=== PATIENT | female | born 1995 | race African-American/Black ===

== ENCOUNTER 2016-12-11 01:44 | Inpatient (IN) ==
[2016-12-11 02:12] LABS: URINE SOURCE VOIDED
[2016-12-11 02:24] LABS: BILIRUBIN URINE NEGATIVE (NEGATIVE); BLOOD URINE 3+ (NEGATIVE); CLARITY CLEAR (CLEAR); COLOR YELLOW; GLUCOSE URINE NEGATIVE (NEGATIVE); LEUKOCYTES URINE 1+ (NEGATIVE); NITRITE URINE NEGATIVE (NEGATIVE); PROTEIN URINE NEGATIVE (NEGATIVE); UROBILINOGEN URINE NORMAL
[2016-12-11] MEDS: LR 1,000 ML IV SCH ×2 (02:40→07:20)
[2016-12-11] MEDS: STADOL IV PRN ×2 (02:45→05:17)
[2016-12-11] MEDS ORDERED: PEPCID IV PRN (02:50)
[2016-12-11] MEDS ORDERED: TYLENOL PO PRN (02:50)
[2016-12-11] MEDS ORDERED: REGLAN PO ONE (02:50)
[2016-12-11] MEDS ORDERED: ZOFRAN IV PRN (02:50)
[2016-12-11] MEDS ORDERED: PEPCID PO PRN (02:50)
[2016-12-11] MEDS ORDERED: PEPCID PO ONE (02:50)
[2016-12-11] MEDS ORDERED: KEFZOL 1 GM/D5W 1 GM/50 ML IVPB IV PRN (02:50)
[2016-12-11] MEDS ORDERED: SODIUM CHLORIDE 0.9% INJ SCH (03:00)
[2016-12-11 04:21] LABS: MANUAL DIFF NEEDED? NO
[2016-12-11 04:45] LABS: HEMATOCRIT 30.7 % (37.0-47.0); HEMOGLOBIN 10.1 g/dL (12.0-16.0); MCV 78.9 FL (81-99); RBC 3.89 XMIL (4.2-5.4)
[2016-12-11 04:46] LABS: BASO% 0.1 % (0.0-0.8); EOS# 0.03 X1000 (0.0-0.7); EOS% 0.3 % (0.0-10.0); IMM GRAN# 0.07 X1000 (0.0-0.04); IMM GRAN% 0.6 % (0.0-0.5); LYMPH# 1.67 X1000 (1.2-3.4); LYMPH% 15.4 % (20.5-51.1); MCHC 32.9 g/dL (33-37); MONO# 1.51 X1000 (0.11-0.59); MONO% 13.9 % (1.7-9.3); MPV 10.3 FL (7.4-10.4); NEUT% 69.7 % (42.2-75.2); PLT 352 X1000 (130-400)
[2016-12-11] MEDS ORDERED: PITOCIN 30 UNITS/LR 30 UNITS/500 ML IV.SOLN IV SCH (05:00)
[2016-12-11] MEDS ORDERED: MARCAINE 0.25% PF/EPI 1:200,000 ONE (07:05)
[2016-12-11] MEDS ORDERED: FENTANYL-BUPIV-NS 2 MCG-0.1% 200 ML ONE (07:06)
[2016-12-11] MEDS ORDERED: FENTANYL-BUPIV-NS 2 MCG-0.1% 200 ML EPIDURAL ONE (07:06)
[2016-12-11] MEDS ORDERED: XYLOCAINE-MPF 2% ONE (07:06)
[2016-12-11] MEDS ORDERED: MARCAINE 0.25% PF INJ ONE (09:15)
[2016-12-11] MEDS ORDERED: MINERAL OIL ONE (10:48)
[2016-12-11] MEDS ORDERED: PITOCIN IM PRN (12:02)
[2016-12-11] MEDS ORDERED: BOOSTRIX VACCINE IM ONE (12:02)
[2016-12-11] MEDS ORDERED: BENADRYL PO PRN (12:02)
[2016-12-11] MEDS ORDERED: M-M-R II VACCINE SUBQ ONE (12:02)
[2016-12-11] MEDS ORDERED: MINERAL OIL PO PRN (12:02)
[2016-12-11] MEDS ORDERED: PITOCIN 30 UNITS/LR 30 UNITS/500 ML IV.SOLN IV ONE (12:02)
[2016-12-11] MEDS ORDERED: AMBIEN PO PRN (12:02)
[2016-12-11] MEDS ORDERED: HYDROXYZINE PO PRN (12:02)
[2016-12-11] MEDS ORDERED: PERI MEDS (DERMOPLAST/NUPERCAINAL/TUCKS) MISC PRN (12:02)
[2016-12-11] MEDS ORDERED: BENADRYL IV PRN (12:02)
[2016-12-11] MEDS ORDERED: CYTOTEC PO PRN (12:02)
[2016-12-11] MEDS ORDERED: PITOCIN 20 UNITS/LR 20 UNITS/1,000 ML IV.SOLN IV SCH (12:02)
[2016-12-11] MEDS ORDERED: NORCO-10 PO PRN (12:02)
[2016-12-11] MEDS ORDERED: XYLOCAINE-MPF 1% INJ PRN (12:02)
[2016-12-11] MEDS ORDERED: HYDROXYZINE IM PRN (12:02)
[2016-12-11] MEDS: MOTRIN PO PRN (14:29)
[2016-12-12] MEDS: NORCO-5 PO PRN ×2 (01:01→14:42)
[2016-12-12] MEDS: PERICOLACE PO SCH ×2 (01:01→21:05)
[2016-12-12] MEDS: MOTRIN PO PRN ×2 (01:01→14:42)
[2016-12-12 05:50] LABS: HEMATOCRIT 26.8 % (37.0-47.0); HEMOGLOBIN 8.4 g/dL (12.0-16.0); MCH 25.1 PG (27-31); MCHC 31.3 g/dL (33-37); MPV 10.1 FL (7.4-10.4)
[2016-12-13 08:32] VITALS: BP 123/72
== END 2016-12-13 11:00 | disposition home or self-care (01) ==
LOC: P.OPLD 01:44 → P.LD 01:50 → P.WC 12-12 10:13
PROVIDERS: ADMIT Obstetrics & Gynecology; ATTEND Obstetrics & Gynecology